=== PATIENT | female | born 1950 | race Caucasian/White ===

== ENCOUNTER 2023-08-14 10:54 | Outpatient (AMB) | payer MEDICARE, SELFPAY ==
--- NOTE | 2023-08-14 11:34 | MHC.OFFWIV ---
Intake Vital Signs 08/14/23 11:35 Height 5 ft 2.5 in Weight 144 lb BMI 25.9 BP 106/60 Blood Pressure Location Rt brachial Position Sitting Pulse 65 Pulse Source Pulse Oximeter Temp 97.8 F Temp Source Oral Pulse Oximetry (%) 98 Oxygen Delivery Method Room Air Intake Visit Reasons: [employer] cut on RT leg/would like to be looked at Intake Note: pt is here for right leg wound Patient Tobacco Use Status: Never used Tobacco Allergies amoxicillin Allergy (Mild, Verified 08/14/23 11:38) Unknown anastrozole Allergy (Mild, Verified 08/14/23 11:38) Unknown denosumab [From Xgeva] Allergy (Mild, Verified 08/14/23 11:38) Unknown diltiazem [From Cartia XT] Allergy (Mild, Verified 08/14/23 11:38) Unknown enalapril Allergy (Mild, Verified 08/14/23 11:38) Unknown metoprolol Allergy (Mild, Verified 08/14/23 11:38) Unknown mometasone furoate Allergy (Mild, Verified 08/14/23 11:38) Unknown olanzapine Allergy (Mild, Verified 08/14/23 11:38) Unknown valsartan Allergy (Mild, Verified 08/14/23 11:38) Unknown Do you need a note to return to daycare/school/sports/work: No HPI HPI Comments History of Present Illness Details Patient is a 72-year-old female complaining of a cut on her right ankle that happened 7 days ago. She states her dogs wire leash caught her on the ankle and cut straight open. She states she is on a blood thinner but she states it did not bleed much. She is able to walk on it fine and able to move her ankle and foot and toes the same as normal. She has been using hydrogen peroxide on it daily and a 1st aid antibiotic cream. She states it is becoming more swollen and red and she is worried she has an infection. She denies any fever PFSH Social History Patient Tobacco Use Status: Never used Tobacco Review of Systems Const All systems reviewed & are unremarkable except as noted in HPI and below Physical Exam Vital Signs: Last Vital Signs Temp 97.8 F 08/14/23 11:35 Pulse 65 08/14/23 11:35 BP 106/60 08/14/23 11:35 Pulse Ox 98 08/14/23 11:35 Oxygen Delivery Method Room Air 08/14/23 11:35 BMI result Body Mass Index 25.9 Const General: cooperative, healthy appearing, comfortable, no acute distress and well developed Orientation/consciousness: patient oriented x3 Limitations: no limitations HEENT Head: Yes normal to inspection Eyes General: appearance normal, both eyes and all related structures Neck Neck: Yes normal visual inspection and Yes full ROM Resp Effort & Inspection: normal respiratory effort and able to speak in complete sentences Neuro General: patient oriented x3 Extrem General: Yes normal to inspection Right lower extremity: ankle (Posterior ankle, 5cm linear laceration) Details: tenderness, swelling, warmth and ecchymosis; no abrasions and achilles tendon exam normal Assessment & Plan Assessment & Plan (1) Cellulitis: Code(s): L03.90 - Cellulitis, unspecified Qualifiers: Site of cellulitis of extremity: lower extremity Laterality: right Site of cellulitis: extremity Qualified Code(s): L03.115 - Cellulitis of right lower limb Plan: Advised using Aquaphor ointment and systolic using hydrogen peroxide daily. Also send prescription for cellulitis which is clearly starting, originally sent cefuroxime but as has amoxicillin allergy, sent Doxycycline instead. Plan See above Medications: New doxycycline hyclate Take with food 100 mg PO BID 10 tabs 0RF Coding Level of Care Code Est Pt Level 3 (66440) Diagnoses Cellulitis of right lower extremity L03.115 Site of cellulitis of extremity: lower extremity Laterality: right Site of cellulitis: extremity
[2023-08-14 11:35] VITALS: BP 106/60; PULSE 65; TEMP 36.6; O2SAT 98; BMI 25.9
== END 2023-08-14 12:03 | disposition home or self-care (01) ==
PROVIDERS: PCP Internal Medicine; Visit Provider Physician Assistant
DX: L03.115 Cellulitis of right lower limb (principal)
CPT/HCPCS: 99213